=== PATIENT | female | born 1955 | race Caucasian/White ===

== ENCOUNTER → 2017-01-04 | Outpatient (CLI) | payer BC ==
[~2017-01-04] MED LIST: ASPI81TA28 PO; CITA10TA4 PO; DOXY100C76 PO; LIFI5DRO OPB; LORA10TA51 PO; NAPR1TAB9 PO; PSYL0.524 PO; [UNRECOGNIZED DRUG - OTHER] OPB
--- NOTE | 2017-01-05 12:36 | MAMMOGRAPHY REPORT ---
BILATERAL DIGITAL SCREENING MAMMOGRAM TOMOSYNTHESIS WITH CAD: 01/04/2017 CLINICAL HISTORY: Routine screening. Patient has no complaints. TECHNIQUE: Breast tomosynthesis in addition to standard 2D mammography was performed. Current study was also evaluated with a Computer Aided Detection (CAD) system. COMPARISON: Comparison is made to exams dated: 04/11/2013 mammogram, 05/25/2010 mammogram - [facility], 05/16/2009, and 01/17/2007. BREAST COMPOSITION: The tissue of both breasts is heterogeneously dense, which may obscure small ma sses. FINDINGS: No suspicious mass, architectural distortion or cluster of microcalcifications is seen. IMPRESSION: ACR BI-RADS CATEGORY 1: NEGATIVE There is no mammographic evidence of malignancy. A 1 year screening mammogram is recommended. The p atient will receive written notification of the results. Approximately 10% of breast cancers are not detected with mammography. A negative mammographic repor t should not delay biopsy if a clinically suggestive mass is present. Ewa dejesus/leonel:01/04/2017 18:50:12 Mileage Clerk: Valeria BALLARD(Susan)(Cherry), [facility] letter sent: Normal 1/2 BI-RADS Code: ACR BI-RADS Category 1: Negative
== END | disposition home or self-care (01) ==
LOC: C.MAMM 13:48
PROVIDERS: ATTEND Obstetrics & Gynecology
DX: Z12.31 Encounter for screening mammogram for malignant neoplasm of breast (principal)

== ENCOUNTER → 2018-02-06 | Outpatient (CLI) | payer BC, OTHER ==
--- NOTE | 2018-02-06 11:11 | DIAGNOSTIC IMAGING REPORT ---
L ELBOW MIN 3 VIEWS CLINICAL HISTORY: 62 years-old Female presenting with RIGHT ANKLE AND LEFT ELBOW PAIN. TECHNIQUE: Frontal, oblique, and lateral views of the left elbow were obtained. COMPARISON: None. FINDINGS: No elbow joint effusion. No acute fracture or malalignment. No advanced degenerative change. No radiographic soft tissue abnormality. IMPRESSION: No acute osseous injury. Electronically signed by: Kt Javed M.D. 02/06/2018 11:10 AM Dictated Date/Time: 02/06/2018 11:09 AM
--- NOTE | 2018-02-06 11:15 | DIAGNOSTIC IMAGING REPORT ---
R ANKLE MIN 3 VIEWS CLINICAL HISTORY: Right ankle pain COMPARISON: None. DISCUSSION: No fractures or subluxations are visualized. There is an equivocal tiny erosion involving the medial malleolar tip. There is minimal calcaneal spurring IMPRESSION: No fractures or subluxations identified. Electronically signed by: Adan Pinon M.D. 02/06/2018 11:14 AM Dictated Date/Time: 02/06/2018 11:13 AM
--- NOTE | 2018-02-06 12:10 | DIAGNOSTIC IMAGING REPORT ---
R FOOT MIN 3 VIEWS CLINICAL HISTORY: 62 years-old Female presenting with ANKLE PAIN. TECHNIQUE: Frontal, oblique, and lateral views of the right foot were obtained. COMPARISON: None. FINDINGS: Os peroneum noted. Osteopenia may be present. Small enthesophyte at the origin of the plantar fascia. No acute fracture or malalignment. No advanced degenerative change. No radiographic soft tissue abnormality. IMPRESSION: 1. No acute osseous injury of the right foot. Electronically signed by: Kt Javed M.D. 02/06/2018 12:09 PM Dictated Date/Time: 02/06/2018 12:08 PM
== END | disposition home or self-care (01) ==
LOC: C.RDSM 11:42
PROVIDERS: ATTEND Internal Medicine
DX: M25.571 Pain in right ankle and joints of right foot (principal); M25.522 Pain in left elbow